=== PATIENT | male | born 1955 | race Caucasian/White ===

== ENCOUNTER 2017-08-13 10:48 | Day surgery (SDC) | payer BC, OTHER ==
[2017-08-07 09:47] VITALS: BMI 31.0
--- NOTE | 2017-08-07 10:24 | PAT Medication Instructions ---
Service Date Aug 07, 2017. Current Home Medication List Aspirin (Aspirin Ec), 81 MG PO QAM Atorvastatin (Lipitor), 40 MG PO DAILY Carvedilol (Coreg), 25 MG PO BID Ergocalciferol (Vitamin D 63465 Unit), 50,000 UNIT PO tim Escitalopram Oxalate (Lexapro), 20 MG PO DAILY Hydralazine Hcl (Apresoline), 50 MG PO TID Insulin Aspart (Novolog), 1 DOSE SQ UD Insulin Glargine (Lantus), 0 SC BID Lorazepam (Ativan), 0.5 MG PO TID PRN for Anxiety Multivitamin (Multivitamin), 1 TAB PO QAM Nifedipine Ext Rel (Procardia Xl Ext Rel), 30 MG PO DAILY Omeprazole (Prilosec), 20 MG PO DAILY Oxycodone/Acetaminophen 5MG/325MG (Percocet 5MG/325MG), 1-2 TABLETS PO Q4H PRN for Pain Polyethylene Glycol 3350 (Miralax), 17 GM PO DAILY PRN for CONSTIPATION Tamsulosin Hcl (Flomax), 0.4 MG PO DAILY Torsemide (Demadex), 100 MG PO DAILY Medication Instructions For Your Scheduled Surgery - Check with surgeon for instructions: Aspirin (Aspirin Ec), 81 MG PO QAM - Hold the following medications the morning of surgery: Ergocalciferol (Vitamin D 27532 Unit), 50,000 UNIT PO thursday Polyethylene Glycol 3350 (Miralax), 17 GM PO DAILY PRN for CONSTIPATION Tamsulosin Hcl (Flomax), 0.4 MG PO DAILY Torsemide (Demadex), 100 MG PO DAILY Multivitamin (Multivitamin), 1 TAB PO QAM Insulin Aspart (Novolog), 1 DOSE SQ UD - Take the following medications the morning of surgery with a sip of water: Oxycodone/Acetaminophen 5MG/325MG (Percocet 5MG/325MG), 1-2 TABLETS PO Q4H PRN for Pain (okay to take up to 4 hours prior to surgery) Omeprazole (Prilosec), 20 MG PO DAILY Nifedipine Ext Rel (Procardia Xl Ext Rel), 30 MG PO DAILY (if needed) Lorazepam (Ativan), 0.5 MG PO TID PRN for Anxiety (if needed) Hydralazine Hcl (Apresoline), 50 MG PO TID Escitalopram Oxalate (Lexapro), 20 MG PO DAILY Carvedilol (Coreg), 25 MG PO BID Atorvastatin (Lipitor), 40 MG PO DAILY - For Insulin Dependent Diabetic patients: Test blood sugar A.M. of surgery. - If Blood sugar greater than 150, take half of your regular dose of: Insulin Glargine (Lantus) take 11 units - If Blood sugar less than 150, do not take any: Insulin Glargine (Lantus) If you have any questions please call us at [phone] or [phone] or [phone]
[2017-08-07 11:14] LABS: MEAN CORPUSCULAR HGB CONC 33.2 g/dl (32-36)
[2017-08-07 11:23] LABS: BUN/CREATININE RATIO 9.8 (10-20); CALCIUM 8.8 mg/dl (8.5-10.1); CREATININE 4.2 mg/dl (0.60-1.40); POTASSIUM 4.6 mmol/L (3.5-5.1)
[2017-08-07 11:24] LABS: HEMATOCRIT 31.3 % (42-52); MEAN CELL VOLUME 83.7 fL (80-100); MEAN CORPUSCULAR HEMOGLOBIN 27.8 pg (25-34); RED BLOOD COUNT 3.74 M/uL (4.7-6.1)
[2017-08-07 11:38] LABS: BASO % 0.6 %; BASO ABS # 0.02 K/uL (0-0.2); COMPLETE YES; EOS % 2.8 %; IG% 0.3 %; LYMPH % 12.5 %; LYMPH ABS # 0.45 K/uL (1.2-3.4); MEAN PLATELET VOLUME 10.7 fL (7.4-10.4); MONO % 8.3 %; NEUT % 75.5 %; PLATELET COUNT 104 K/uL (130-400); PLT ESTIMATE DECREASED
--- NOTE | 2017-08-07 12:38 | DIAGNOSTIC IMAGING REPORT ---
TWO VIEW CHEST CLINICAL HISTORY: Preoperative examination. FINDINGS: PA and lateral chest radiographs are obtained. No prior studies are available for comparison at the time of dictation. A right internal jugular central venous catheter is in place. The heart is enlarged and there is mild atherosclerotic calcification of the thoracic aorta. The pulmonary vasculature is noncongested. A coronary artery stent is suggested. The lungs and pleural spaces are clear. There is no pneumothorax. The skeletal structures are osteopenic. The bony thorax appears intact. IMPRESSION: Cardiomegaly with no active disease in the chest. Electronically signed by: Sb Blanco M.D. 08/07/2017 12:37 PM Dictated Date/Time: 08/07/2017 12:35 PM
[~2017-08-13] VITALS: Ht 177.8 cm; Wt 98.0 kg
[~2017-08-13 10:48] MED LIST: APR25 PO; ASPI81TA28 PO; ATOR-24 PO; CARV25TA2 PO; CEFAZOLIN 1000MG/55 ML D5W IV SCH; ERGO500037 PO; ESCI1TAB10 PO; FENTANYL CITRATE INJ 50 MCG/1 ML 2 ML VIAL ONE; INSDGI SC; LIDOCAINE HCL 2% 2 ML VIAL (20MG/ML) ONE; LORA-741 PO; MIDAZOLAM HCL 1 MG/ML 2ML VIAL ONE; MULT-506 PO; NIFE30TA83 PO; NVLG SQ; ONDANSETRON INJ 2 MG/ML 2 ML VIAL ONE; OXYC-57 PO; POLY335019 PO; PRLSR20 PO; PROPOFOL IV EMULSION 10 MG/ML 20 ML VIAL IV ONE; SODIUM CHLORIDE 0.9% 1000ML 1,000 ML IV SCH; TAMS0.4C38 PO; TORS100T13 PO
[2017-08-13 11:31] VITALS: BP 124/74; PULSE 71; TEMP 36.4; O2SAT 95; Ht 177.8 cm; Wt 98.0 kg
[2017-08-13] MEDS ORDERED: FENTANYL CITRATE INJ 50 MCG/1 ML 2 ML VIAL ONE (11:41)
[2017-08-13] MEDS ORDERED: MIDAZOLAM HCL 1 MG/ML 2ML VIAL ONE (11:41)
[2017-08-13 11:44] LABS: HEMATOCRIT 35.9 % (42-52); MEAN CELL VOLUME 83.9 fL (80-100); MEAN PLATELET VOLUME 10.4 fL (7.4-10.4); PLATELET COUNT 105 K/uL (130-400); RED BLOOD COUNT 4.28 M/uL (4.7-6.1); WHITE BLOOD COUNT 4.01 K/uL (4.8-10.8)
[2017-08-13 11:49] LABS: MEAN CORPUSCULAR HGB CONC 33.4 g/dl (32-36)
[2017-08-13 12:05] LABS: BUN/CREATININE RATIO 9.7 (10-20); CALCIUM 8.7 mg/dl (8.5-10.1); CREATININE 3.2 mg/dl (0.60-1.40); POTASSIUM 4.3 mmol/L (3.5-5.1)
[2017-08-13] MEDS ORDERED: THROMBIN FOR SOLN 20000 UNIT KIT ONE (12:22)
[2017-08-13] MEDS ORDERED: HEPARIN SOD (PORCINE) 1000 UNIT/ML 10 ML VIAL ONE (12:22)
[2017-08-13] MEDS ORDERED: GELATIN SPONGE 12-7MM ONE (12:22)
[2017-08-13] MEDS ORDERED: LIDOCAINE HCL 1% 20 ML VIAL ONE (12:22)
[2017-08-13] MEDS ORDERED: BUPIVACAINE/EPINEPHRINE 0.5% MPF 1:200,000 30 ML VIAL ONE (12:22)
--- NOTE | 2017-08-13 12:44 | History and Physical ---
History & Physical Date of Service Aug 13, 2017. History & Physical CC: End stage renal disease HPI: Mr. Melara is a pleasant 62-year-old male with a complicated past medical history including end-stage renal disease, heart failure, atrial fibrillation, and previous pontine stroke. He presents to clinic today to discuss permanent hemodialysis access options. He currently dialyzes through a right tunneled hemodialysis catheter. He is a [id number] male. He did undergo venous mapping prior to today's procedure, which shows adequate cephalic vein. His eventual goal is to be able to undergo home hemodialysis. He denies any current chest pain, shortness of breath, nausea, vomiting, fever, or chills. He did state that he had some issues with shortness of breath prior to initiation of hemodialysis but this has since resolved. He denies any recent stroke or TIA like symptoms. He has a previous right lower extremity below-knee amputation but denies any claudication, rest pain or tissue loss in his left lower extremity. He does have persistent left lower extremity swelling , which he attributes to his heart failure and end-stage renal disease. His past medical history is significant for right MCA ischemic stroke, hypertension, atrial fibrillation, chronic renal failure, congestive heart failure, diabetes, diabetic neuropathy, status post amputation, history of hepatitis C, hyperlipidemia, depression. His past surgical history is significant for right below-knee amputation done for complications from diabetes. He has also had a tonsillectomy. He has no known drug allergies. His medications were reviewed and no changes were made today. On exam, his heart rate is 80, blood pressure 138/76. In general, he is chronically ill-appearing but in no acute distress. His head is atraumatic. Mucous membranes are moist. There is no scleral icterus. His neck is supple. His heart has regular rate and rhythm. His breathing is symmetric and nonlabored. He is status post a right below-knee amputation. He has palpable radial pulses bilaterally. His vein mapping shows a usable cephalic vein on the left side. Imp: End stage renal disease Plan: Patient is admitted for a left wrist av fistula I have discussed the risks options and benefits of the procedure with the patient. The patient understands the risks options and benefits and agrees to the procedure.
[2017-08-13] MEDS ORDERED: PROPOFOL IV EMULSION 10 MG/ML 20 ML VIAL IV ONE (12:47)
[2017-08-13] MEDS ORDERED: SURGICEL ABSORB HEMOSTAT 2IN X 14IN TOP ONE (13:51)
--- NOTE | 2017-08-13 14:05 | [facility] Post Operative Brief Note ---
Immediate Operative Summary Operative Date Aug 13, 2017. Pre-Operative Diagnosis End Stage Renal Disease Post-Operative Diagnosis End Stage Renal Disease Procedure(s) Performed Left wrist AV fistula creation Surgeon Dr. Fei Lubin Ferris Wheel Operator Surgeon(s) none Estimated Blood Loss 10 Findings good thrill Specimens None per surgeon Anesthesia MAC Complication(s) None Disposition Recovery Room / PACU
--- NOTE | 2017-08-13 14:08 | Discharge Instructions ---
Discharge Instructions Date of Service Aug 13, 2017. Visit Reason for Visit: End Stage Renal Disease Discharge Discharge Diagnosis / Problem: End stage renal disease Discharge Goals Goal(s): Therapeutic intervention Activity Recommendations Activity Limitations: per Instructions/Follow-up section Shower/Bathe: tomorrow Anesthesia . Post Anesthesia Instructions: If you have had General Anesthesia or IV Sedation: * Do not drive today. * Resume driving when surgeon permits. * Do not make important decisions or sign legal documents today. * Call surgeon for: 1. Temperature elevations greater than 101 degrees F. 2. Uncontrollable pain. 3. Excessive bleeding. 4. Persistent nausea and vomiting. 5. Medication intolerance (nausea, vomiting or rash). * For nausea and vomiting use only clear liquids such as: tea, soda, bouillon until nausea subsides, then gradually increase diet as tolerated. * If you have any concerns or questions, call your surgeon's office. If physician is unavailable and it is an emergency, call 911 or go to the nearest emergency room. . Instructions / Follow-Up Instructions / Follow-Up Call [phone] to schedule a follow up appointment if one not already scheduled. ACTIVITY RECOMMENDATIONS: See Above SPECIAL CARE INSTRUCTIONS: Call your doctor if: * Temperature above 101 degrees * Pain not relieved by pain medicine ordered * There is increased drainage or redness from any incision * You have any unanswered questions or concerns. Diet Recommendations Recommended Home Diet: resume previous diet Procedures Procedures Performed: Left wrist AV fistula creation Pending Studies Studies pending at discharge: no Medical Emergencies . Who to Call and When: Medical Emergencies: If at any time you feel your situation is an emergency, please call 911 immediately. . Non-Emergent Contact Non-Emergency issues call your: Surgeon . . "Provider Documentation" section prepared by Fei Lubin. .
[2017-08-13] MEDS ORDERED: ONDANSETRON INJ 2 MG/ML 2 ML VIAL ONE (14:15)
[2017-08-13] MEDS ORDERED: ONDANSETRON INJ 2 MG/ML 2 ML VIAL IV PRN (14:15)
[2017-08-13] MEDS ORDERED: FENTANYL CITRATE INJ 50 MCG/1 ML 2 ML VIAL IV PRN (14:15)
[2017-08-13] MEDS ORDERED: ATROPINE SULFATE 0.1 MG/ML 5ML SYR IV PRN (14:15)
[2017-08-13] MEDS ORDERED: LIDOCAINE HCL 2% 2 ML VIAL (20MG/ML) ONE (14:15)
[2017-08-13] MEDS ORDERED: OXYCODONE/ACETAMINOPHEN 5-325 TAB PO PRN (14:15)
[2017-08-13] MEDS ORDERED: LABETALOL HCL IV 5 MG/ML 20ML IV PRN (14:15)
--- NOTE | 2017-08-13 14:29 | Anesthesiology Progress Note ---
Anesthesia Post Op Note Date & Time Aug 13, 2017 at 14:29 Vital Signs Pain Intensity: 0 Vital Signs Past 12 Hours Date Time Temp Pulse Resp B/P (MAP) Pulse Ox O2 Delivery O2 Flow Rate FiO2 08/13/17 14:20 71 12 109/79 92 Room Air 08/13/17 14:12 36.2 72 18 108/75 96 Oxymask 10 08/13/17 11:31 36.4 71 16 124/74 (91) 95 Room Air Notes Mental Status: alert / awake / arousable, participated in evaluation Pt Amnestic to Procedure: Yes Nausea / Vomiting: adequately controlled Pain: adequately controlled Airway Patency, RR, SpO2: stable & adequate BP & HR: stable & adequate Hydration State: stable & adequate Anesthetic Complications: no major complications apparent
[2017-08-13] MEDS ORDERED: OXYC-57 PO (14:38)
[2017-08-13 14:45] VITALS: BP 125/83; PULSE 73; TEMP 36.4; O2SAT 96
--- NOTE | 2017-08-13 14:48 | OPERATIVE REPORT ---
DATE OF OPERATION: 08/13/2017 PREOPERATIVE DIAGNOSIS: Endstage renal disease. POSTOPERATIVE DIAGNOSIS: Same. PROCEDURE: Left wrist AV fistula creation. SURGEON: Dr. Lubin. ANESTHETIC: MAC. PROCEDURE INDICATIONS: The patient is a 62-year-old gentleman with endstage renal disease in need of access. Left wrist fistula was recommended. He understood the risks, options and benefits and agreed to have this procedure. OPERATION AND FINDINGS: The patient was taken to the operating room and placed in supine position. After left wrist was prepped and draped in a sterile manner, local anesthetic was administered. A longitudinal incision was made between the cephalic vein and the radial artery just above the wrist level. Cephalic vein was identified. It was of good caliber. It was freed up for length of the incision. Next, the radial artery was identified. It was also freed up below the incision. It was mildly calcified at that level. At that point the cephalic vein was ligated distally and divided. The radial artery was then clamped proximally and distally. Longitudinal arteriotomy was then made. I had good flow and good lumen; however, had some mild calcifications within the wall. The cephalic vein was then beveled and end-to-side anastomosis was accomplished using a 7-0 Prolene suture in the usual vascular fashion. Prior to completing the closure, backbleeding and forward bleeding was allowed to occur. Final few sutures were then placed and securely tied. Clamps were then removed. Excellent flow was seen. There was a palpable thrill in the fistula itself. Adequate hemostasis was then noted. The wound was then closed in the usual fashion using running 3-0 Vicryl suture for the subcutaneous layer and running 4-0 subcuticular suture for the skin edges. Dermabond was used for a dressing. The patient left the operating room in satisfactory condition and tolerated the procedure well. I attest to the content of the Intraoperative Record and any orders documented therein. Any exception s are noted below.
[2017-08-13 15:20] VITALS: BP 139/80; PULSE 74; O2SAT 97
[2017-08-13 15:45] VITALS: BP 138/81; PULSE 74; TEMP 36.5; O2SAT 95
== END 2017-08-13 15:58 | disposition home or self-care (01) ==
LOC: C.ACU 10:48
PROVIDERS: ATTEND Surgery Vascular Surgery
DX: I13.2 Hypertensive heart and chronic kidney disease with heart failure and with stage 5 chronic kidney disease, or end stage renal disease (principal); N18.6 End stage renal disease; I50.9 Heart failure, unspecified; I48.91 Unspecified atrial fibrillation; E11.40 Type 2 diabetes mellitus with diabetic neuropathy, unspecified; Z89.511 Acquired absence of right leg below knee; Z86.73 Personal history of transient ischemic attack (TIA), and cerebral infarction without residual deficits

== ENCOUNTER 2017-09-23 10:30 | Emergency (ER) | payer BC ==
[~2017-09-23 10:30] MED LIST changes: -CEFAZOLIN 1000MG/55 ML D5W IV SCH; -FENTANYL CITRATE INJ 50 MCG/1 ML 2 ML VIAL ONE; -LIDOCAINE HCL 2% 2 ML VIAL (20MG/ML) ONE; -MIDAZOLAM HCL 1 MG/ML 2ML VIAL ONE; -ONDANSETRON INJ 2 MG/ML 2 ML VIAL ONE; -PROPOFOL IV EMULSION 10 MG/ML 20 ML VIAL IV ONE; -SODIUM CHLORIDE 0.9% 1000ML 1,000 ML IV SCH
[2017-09-23 10:32] VITALS: TEMP 36.7; Ht 177.8 cm
--- NOTE | 2017-09-23 11:18 | DIAGNOSTIC IMAGING REPORT ---
CHEST ONE VIEW PORTABLE CLINICAL HISTORY: ABDOMINAL PAIN/GI pain COMPARISON STUDY: 08/07/2017 FINDINGS: Moderate cardiomegaly. Central catheter in superior vena cava. Mild chronic prominence of pulmonary vasculature. Diaphragms are smooth. There are no focal infiltrates. Minimal chronic atelectatic change right base. IMPRESSION: Moderate stable cardiomegaly. No acute process. The above report was generated using voice recognition software. It may contain grammatical, syntax or spelling errors. Electronically signed by: Eric Kapoor M.D. 09/23/2017 11:17 AM Dictated Date/Time: 09/23/2017 11:16 AM
[2017-09-23 11:28] LABS: HEMATOCRIT 35.9 % (42-52); MEAN CELL VOLUME 84.5 fL (80-100); MEAN CORPUSCULAR HEMOGLOBIN 28.5 pg (25-34); MEAN CORPUSCULAR HGB CONC 33.7 g/dl (32-36); MEAN PLATELET VOLUME 10.2 fL (7.4-10.4); PLATELET COUNT 120 K/uL (130-400); RED BLOOD COUNT 4.25 M/uL (4.7-6.1); WHITE BLOOD COUNT 6.36 K/uL (4.8-10.8)
[2017-09-23 11:36] LABS: INR 1.1 (0.9-1.1); PARTIAL THROMBOPLASTIN RATIO 1.2; PROTHROMBIN TIME (PATIENT) 11.7 SECONDS (9.0-12.0)
[2017-09-23 11:46] LABS: BASO % 0.5 %; BASO ABS # 0.03 K/uL (0-0.2); COMPLETE YES; EOS % 1.6 %; IG% 0.2 %; LYMPH % 6.8 %; LYMPH ABS # 0.43 K/uL (1.2-3.4); MONO % 5.5 %; NEUT % 85.4 %
[2017-09-23 12:00] LABS: ALKALINE PHOSPHATASE 330 U/L (45-117); ALT/SGPT 60 U/L (12-78); AST/SGOT 22 U/L (15-37); BLOOD UREA NITROGEN 82 mg/dl (7-18); BUN/CREATININE RATIO 12.6 (10-20); CALCIUM 8.7 mg/dl (8.5-10.1); CARBON DIOXIDE 19 mmol/L (21-32); CHLORIDE 108 mmol/L (98-107); CREATININE 6.38 mg/dl (0.60-1.40); GLUCOSE 237 mg/dl (70-99); POTASSIUM 4.3 mmol/L (3.5-5.1); SODIUM 138 mmol/L (136-145)
--- NOTE | 2017-09-23 12:17 | EMERGENCY ROOM VISIT NOTE ---
History Report prepared by Sushant: Hilary Lebron Under the Supervision of: Dr. Mamadou Mckeon D.O. First contact with patient: 10:37 Chief Complaint: OTHER COMPLAINT Stated Complaint: EVALUATE FOR DIALYSIS History of Present Illness The patient is a 62 year old male who presents to the Emergency Room for evaluation for dialysis. The patient typically has dialysis treatments every Thursday/Thursday/Thursday through [facility]. He has been getting dialysis since June and has a port in his chest. He has not had any dialysis treatments since 09/14/17. The patient went to the [place] today and was told that he needed to come to the ED for evaluation for dialysis. The patient still makes urine and states that he has been urinating more than usual since he stopped getting dialysis. He denies fevers, chill, chest pain, shortness of breath, and any increased swelling of his legs or abdomen. 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 A total of 10 systems reviewed and were otherwise negative. Past Medical & Surgical Medical Problems: (1) Amputation of right lower extremity (2) Diabetes mellitus (3) History of stroke (4) HTN (hypertension) (5) Kidney disease Family History Cancer Diabetes mellitus Heart disease Hypertension Kidney disease Kidney stones Social History Smoking Status: Never Smoker Smokeless Tobacco Use: No Alcohol Use: none Marital Status: Housing Status: lives with significant other Occupation Status: unemployed Current/Historical Medications Scheduled Aspirin (Aspirin Ec), 81 MG PO QAM Atorvastatin (Lipitor), 40 MG PO DAILY Carvedilol (Coreg), 25 MG PO BID Cephalexin Monohydrate (Keflex), 500 MG PO QID Ergocalciferol (Vitamin D 30789 Unit), 50,000 UNIT PO tim Escitalopram Oxalate (Lexapro), 20 MG PO DAILY Hydralazine Hcl (Apresoline), 50 MG PO TID Insulin Aspart (Novolog), 5 UNITS SQ TIDM Insulin Glargine (Lantus), 22 UNITS SC BID Multivitamin (Multivitamin), 1 TAB PO QAM Nifedipine Ext Rel (Procardia Xl Ext Rel), 30 MG PO DAILY Omeprazole (Prilosec), 20 MG PO DAILY Tamsulosin Hcl (Flomax), 0.4 MG PO DAILY Torsemide (Demadex), 100 MG PO DAILY Scheduled PRN Lorazepam (Ativan), 0.5 MG PO TID PRN for Anxiety Polyethylene Glycol 3350 (Miralax), 17 GM PO DAILY PRN for CONSTIPATION Allergies Coded Allergies: No Known Allergies (Unverified , 09/23/17) Physical Exam Vital Signs Date Time Temp Pulse Resp B/P (MAP) Pulse Ox O2 Delivery O2 Flow Rate FiO2 09/23/17 14:14 81 150/91 92 09/23/17 12:29 79 147/97 95 Room Air 09/23/17 11:35 78 09/23/17 10:32 36.7 82 20 142/75 95 Room Air Physical Exam GENERAL: Patient is awake, alert, and in no acute distress. Patient is resting comfortably and showing no signs of anxiety EYES: The conjunctivae are clear. The pupils are round and reactive. EARS, NOSE, MOUTH AND THROAT: The nose is without any evidence of any deformity. Mucous membranes are moist tongue is midline NECK: The neck is nontender and supple. RESPIRATORY: Normal respiratory effort is noted there is no evidence of wheezing rhonchi or rales CARDIOVASCULAR: Regular rate and rhythm noted there no murmurs rubs or gallops normal S1 normal S2 CHEST: Dialysis port in the right chest wall, no erythema or swelling noted. GASTROINTESTINAL: The abdomen is soft. Bowel sounds are present in all quadrants. Abdomen is nontender MUSCULOSKELETAL/EXTREMITIES: Right above the knee amputation. There is no evidence of gross deformity full range of motion is noted in the hips and shoulders SKIN: Pedal edema on the left leg. There is no obvious evidence of any rash. There are no petechiae, pallor or cyanosis noted. NEUROLOGIC: Patient is awake alert and oriented x3 Medical Decision & Procedures ER Provider Diagnostic Interpretation: Radiology results as stated below per my review and radiologist interpretation: CHEST ONE VIEW PORTABLE CLINICAL HISTORY: ABDOMINAL PAIN/GI pain COMPARISON STUDY: 08/07/2017 FINDINGS: Moderate cardiomegaly. Central catheter in superior vena cava. Mild chronic prominence of pulmonary vasculature. Diaphragms are smooth. There are no focal infiltrates. Minimal chronic atelectatic change right base. IMPRESSION: Moderate stable cardiomegaly. No acute process. The above report was generated using voice recognition software. It may contain grammatical, syntax or spelling errors. Electronically signed by: Eric Kapoor M.D. 09/23/2017 11:17 AM Dictated Date/Time: 09/23/2017 11:16 AM Laboratory Results 09/23/17 11:10 Red Blood Count 4.25, Mean Corpuscular Volume 84.5, Mean Corpuscular Hemoglobin 28.5, Mean Corpuscular Hemoglobin Concent 33.7, Mean Platelet Volume 10.2, Neutrophils (%) (Auto) 85.4, Lymphocytes (%) (Auto) 6.8, Monocytes (%) (Auto) 5.5, Eosinophils (%) (Auto) 1.6, Basophils (%) (Auto) 0.5, Neutrophils # (Auto) 5.44, Lymphocytes # (Auto) 0.43, Monocytes # (Auto) 0.35, Eosinophils # (Auto) 0.10, Basophils # (Auto) 0.03 09/23/17 11:10 Test 09/23/17 11:10 09/23/17 12:05 White Blood Count 6.36 K/uL (4.8-10.8) Red Blood Count 4.25 M/uL (4.7-6.1) Hemoglobin 12.1 g/dL (14.0-18.0) Hematocrit 35.9 % (42-52) Mean Corpuscular Volume 84.5 fL (80-100) Mean Corpuscular Hemoglobin 28.5 pg (25-34) Mean Corpuscular Hemoglobin Concent 33.7 g/dl (32-36) Platelet Count 120 K/uL (130-400) Mean Platelet Volume 10.2 fL (7.4-10.4) Neutrophils (%) (Auto) 85.4 % Lymphocytes (%) (Auto) 6.8 % Monocytes (%) (Auto) 5.5 % Eosinophils (%) (Auto) 1.6 % Basophils (%) (Auto) 0.5 % Neutrophils # (Auto) 5.44 K/uL (1.4-6.5) Lymphocytes # (Auto) 0.43 K/uL (1.2-3.4) Monocytes # (Auto) 0.35 K/uL (0.11-0.59) Eosinophils # (Auto) 0.10 K/uL (0-0.5) Basophils # (Auto) 0.03 K/uL (0-0.2) RDW Standard Deviation 48.3 fL (36.4-46.3) RDW Coefficient of Variation 15.8 % (11.5-14.5) Immature Granulocyte % (Auto) 0.2 % Immature Granulocyte # (Auto) 0.01 K/uL (0.00-0.02) Prothrombin Time 11.7 SECONDS (9.0-12.0) Prothromb Time International Ratio 1.1 (0.9-1.1) Activated Partial Thromboplast Time 30.7 SECONDS (21.0-31.0) Partial Thromboplastin Ratio 1.2 Anion Gap 11.0 mmol/L (3-11) Estimated GFR () 10.0 Estimated GFR (Non- 8.7 BUN/Creatinine Ratio 12.6 (10-20) Calcium Level 8.7 mg/dl (8.5-10.1) Total Bilirubin 0.7 mg/dl (0.2-1) Direct Bilirubin 0.3 mg/dl (0-0.2) Aspartate Amino Transf (AST/SGOT) 22 U/L (15-37) Alanine Aminotransferase (ALT/SGPT) 60 U/L (12-78) Alkaline Phosphatase 330 U/L (45-117) Total Creatine Kinase 20 U/L (39-308) Creatine Kinase MB 1.8 ng/ml (0.5-3.6) Creatine Kinase MB Ratio 9.0 (0-3.0) Troponin I < 0.015 ng/ml (0-0.045) Pro-B-Type Natriuretic Peptide > 13528 pg/ml (0-900) Total Protein 8.1 gm/dl (6.4-8.2) Albumin 3.1 gm/dl (3.4-5.0) Lipase 133 U/L (73-393) Urine Color YELLOW Urine Appearance CLOUDY (CLEAR) Urine pH 5.0 (4.5-7.5) Urine Specific [place] 1.019 (1.000-1.030) Urine Protein 3+ (NEG) Urine Glucose (UA) 1+ (NEG) Urine Ketones NEG (NEG) Urine Occult Blood NEG (NEG) Urine Nitrite NEG (NEG) Urine Bilirubin NEG (NEG) Urine Urobilinogen NEG (NEG) Urine Leukocyte Esterase MODERATE (NEG) Urine WBC (Auto) >30 /hpf (0-5) Urine RBC (Auto) 0-4 /hpf (0-4) Urine Hyaline Casts (Auto) 1-5 /lpf (0-5) Urine Epithelial Cells (Auto) >30 /lpf (0-5) Urine Bacteria (Auto) NEG (NEG) Urine Renal Epithelial Cells 5-10 /lpf (0-5) Urine Crystals AMORPHOUS SEDIMENT (NONE Laboratory results per my review. ECG Indication: other Rate (beats per minute): 89 Rhythm: atrial fibrillation Findings: no acute ischemic change, no ectopy Comparison ECG Date: no prior available ED Course 1037: The patient was evaluated in room C9. A complete history and physical examination were performed. 1214: The patient is doing well and I updated him on the results. 1252: Case management has gotten the patient an appointment for dialysis today and Thursday but the patient is currently refusing to go. 1314: I spoke with Dr. Umanzor at [facility]. They will arrange an appointment for dialysis later today. 1326: I reassessed the patient at this time. He is feeling better and resting comfortably. I discussed the results and treatment plan with the patient. I answered all pertaining questions that he had. He expressed understanding and verbalized agreement. The patient will be discharged home and was encourage to attend his dialysis appointment today. Medical Decision Differential diagnosis: Etiologies such as metabolic, infection, hypo/hyperglycemia, electrolyte abnormalities, cardiac sources, intracerebral event, toxicologic, neurologic, as well as others were entertained. Nursing notes reviewed. Additional history was obtained from the patient's family member. The patient is a 62-year-old male who presented to the emergency department for an evaluation of renal failure. The patient has a history of chronic renal failure. He has not been to dialysis since the th of this month. When he tried to follow-up with dialysis today he was told he should go to the emergency department. The patient is in renal failure at this time but his creatinine is normal his vital signs are acceptable I discussed his case with his primary covering instrument man. We were able to get the patient an appointment with his dialysis today. He was also started on an antibiotic for presumed urinary tract infection. I discussed patient's laboratory and radiographic studies with him. The patient was somewhat disappointed because he felt that he did not wish to follow-up at his usual dialysis center. I encouraged him to continue to follow-up with dialysis today as well as Thursday. He could continue to work on a different dialysis and future but he was encouraged to follow-up for dialysis and not miss any further appointments. Medication Reconcilliation Current Medication List: was personally reviewed by me Blood Pressure Screening Patient's blood pressure: Elevated blood pressure Blood pressure disposition: Elevated BP felt to be situational Consults Time Called: 1311 Consulting Physician: Dr. Umanzor Returned Call: [address] Umanzor at [facility]. They will arrange an appointment for dialysis later today. Impression Primary Impression: Renal failure Additional Impressions: Atrial fibrillation UTI (urinary tract infection) Scribe Attestation The scribe's documentation has been prepared under my direction and personally reviewed by me in its entirety. I confirm that the note above accurately reflects all work, treatment, procedures, and medical decision making performed by me. Departure Information Dispostion Home / Self-Care Prescriptions Cephalexin Monohydrate (KEFLEX) 500 Mg Cap 500 MG PO QID, #28 CAP Prov: Mamadou Mckeon, DO 09/23/17 Referrals Rosa Wyatt M.D. (PCP) Forms HOME CARE DOCUMENTATION FORM, IMPORTANT VISIT INFORMATION, WORK / SCHOOL INSTRUCTIONS Patient Instructions ED Renal Failure Chronic, Hemodialysis, My [facility], Urinary Tract Infecs Men Additional Instructions Go directly to dialysis for today's appointment. Also follow-up with your dialysis appointment on Thursday. Monitor your fluid intake as previously. Continue all medications as prescribed. Follow-up with your instrument man this is possible. Return to the emergency department immediately if symptoms change worsen or the need arises. Start the antibiotic for the urinary tract infection as soon as possible. Problem Qualifiers Primary Impression: Renal failure Renal failure chronicity: chronic Chronic kidney disease stage: on chronic dialysis Qualified Codes: N18.6 - End stage renal disease; Z99.2 - Dependence on renal dialysis Additional Impressions: Atrial fibrillation Atrial fibrillation type: chronic Qualified Codes: I48.2 - Chronic atrial fibrillation UTI (urinary tract infection) Urinary tract infection type: site unspecified Hematuria presence: without hematuria Qualified Codes: N39.0 - Urinary tract infection, site not specified
[2017-09-23 13:00] LABS: URINE APPEARANCE CLOUDY (CLEAR); URINE BILIRUBIN NEG (NEG); URINE COLOR YELLOW; URINE EPITHELIAL CELL AUTO >30 /lpf (0-5); URINE NITRITE NEG (NEG); URINE SPECIFIC GRAVITY 1.019 (1.000-1.030); UROBILINOGEN NEG (NEG)
[2017-09-23 13:10] LABS: MANUAL MICROSCOPIC REQUIRED? NO; REVIEW REQ? YES
[2017-09-23] MEDS ORDERED: CEPH500C2 PO (13:38)
[2017-09-23 14:14] VITALS: BP 150/91; PULSE 81; O2SAT 92
== END 2017-09-23 14:14 | disposition home or self-care (01) ==
LOC: C.EDB 10:31 → C.EDC 14:14
DX: N18.6 End stage renal disease (principal); I12.0 Hypertensive chronic kidney disease with stage 5 chronic kidney disease or end stage renal disease; Z99.2 Dependence on renal dialysis; I48.2 Chronic atrial fibrillation; N39.0 Urinary tract infection, site not specified; Z89.611 Acquired absence of right leg above knee; E11.22 Type 2 diabetes mellitus with diabetic chronic kidney disease; Z86.73 Personal history of transient ischemic attack (TIA), and cerebral infarction without residual deficits; Z80.9 Family history of malignant neoplasm, unspecified; Z83.3 Family history of diabetes mellitus; Z82.49 Family history of ischemic heart disease and other diseases of the circulatory system; Z84.1 Family history of disorders of kidney and ureter; Z79.82 Long term (current) use of aspirin; Z79.4 Long term (current) use of insulin; Z79.899 Other long term (current) drug therapy